=== PATIENT | female | born 1960 | race Caucasian/White ===

== ENCOUNTER 2024-03-25 14:37 | Outpatient (CLI) | payer MEDICARE, OTHER | END 2024-03-25 14:38 | disposition home or self-care (01) | LOC: CSHCT 14:37 | PROVIDERS: ATTEND Internal Medicine | DX: R05.2 Subacute cough (principal); S22.41XD Multiple fractures of ribs, right side, subsequent encounter for fracture with routine healing | CPT/HCPCS: 71250 ==